=== PATIENT | female | born 1980 | race Caucasian/White ===

== ENCOUNTER 2021-11-22 18:56 | Emergency (ER) | payer SELFPAY ==
[~2021-11-22] VITALS: Ht 175.3 cm; Wt 52.2 kg
--- NOTE | 2021-11-22 19:40 | NUR ---
Patient was called to be triaged but was not present in the waiting or outside of ER.
[2021-11-22 20:14] LABS: *BLOOD, URINE 3+ (NEGATIVE); *KETONES,URINE 1+ (NEGATIVE); *UROBILINOGEN,URINE 0.2 E.U./dl (NORMAL); LEUKOCYTE ESTERASE ,URINE 1+ (NEGATIVE); NITRITE, URINE POSITIVE (NEGATIVE); PH,URINE 5.5 (5.0-8.0); UGLUCOSE NEGATIVE (NEGATIVE)
[2021-11-22 20:15] LABS: *BILIRUBIN,URIN 1+ (NEGATIVE)
[2021-11-22 20:16] LABS: *URINE HCG, QUAL NEGATIVE (NEGATIVE)
[2021-11-22 20:22] LABS: *CLARITY,URINE CLOUDY (CLEAR); *COLOR,URINE DARK YELLOW (YELLOW); RBC,URINE TNTC /HPF (0-3)
[2021-11-22 20:23] LABS: BACTERIA,URINE MODERATE /HPF (NONE SEEN); SQUAMOUS EPITHELIAL CELL,UR MODERATE /HPF (NONE SEEN); WBC,URINE 80-100 /HPF (0-3)
[2021-11-22 20:47] LABS: HEMATOCRIT 43.7 % (31.2-41.9); MEAN CORPUSCULAR HEMOGLOBIN 28.7 uug (24.7-32.8); MEAN CORPUSCULAR VOLUME 86.7 fL (75.5-95.3); PLATELET COUNT (AUTO) 204 K/uL (179-408)
[2021-11-22 20:51] LABS: CREATININE 0.7 mg/dL (0.6-1.3); POTASSIUM 3.9 mmol/L (3.5-5.1)
[2021-11-22] MEDS ORDERED: CEFTRIAXONE 1 G in IV DEXTROSE 5% 50 ML IV ONE (21:00)
[2021-11-22] MEDS ORDERED: CEFTRIAXONE /D5W 50ML IVPB **ER PYXIS IV ONE (21:26)
[2021-11-22] MEDS ORDERED: SULF1TAB48 PO (21:36)
[2021-11-22] MEDS ORDERED: PHEN-705 PO (21:36)
--- NOTE | 2021-11-22 21:46 | NUR ---
IV removed. Catheter intact and site benign. Pressure and 4x4 gauze applied to site. No bleeding noted.
--- NOTE | 2021-11-22 21:46 | NUR ---
Patient discharged to home in stable condition. Written and verbal after care instructions given. Patient verbalizes understanding of instructions. Stressed follow up or return to ER for worsening s/s.
[2021-11-22 21:47] VITALS: BP 116/68
== END 2021-11-22 21:47 | disposition home or self-care (01) ==
LOC: ER 19:03
DX: N30.91 Cystitis, unspecified with hematuria (principal); F17.210 Nicotine dependence, cigarettes, uncomplicated
CPT/HCPCS: 36415; 80048; 81001; 84703; 85025; 87077; 87086; 87186; 96365; 99284; J0696; A4663